=== PATIENT | male | born 1990 | race Caucasian/White ===

== ENCOUNTER 2016-12-01 07:59 | Emergency (ER) | payer OTHER ==
[~2016-12-01] VITALS: Ht 190.5 cm; Wt 120.9 kg
[~2016-12-01 07:59] MED LIST: AZIT250T PO; CYCL10TA2 PO; HYDR-971 PO; ONDA4TAB10 SL; PRED20TA PO; PROAIR HFA8.5 GM INH
[2016-12-01 08:11] VITALS: BP 176/89
[2016-12-01] MEDS ORDERED: ACET325T9 PO (08:20)
[2016-12-01] MEDS ORDERED: NAPR500T PO (08:20)
[2016-12-01] MEDS ORDERED: DIAZ5TAB PO (08:20)
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
== END 2016-12-01 08:33 | disposition home or self-care (01) ==
LOC: ER 07:59
DX: S39.012A Strain of muscle, fascia and tendon of lower back, initial encounter (principal); I10 Essential (primary) hypertension; K21.9 Gastro-esophageal reflux disease without esophagitis; F17.210 Nicotine dependence, cigarettes, uncomplicated; V43.52XA Car driver injured in collision with other type car in traffic accident, initial encounter; Y93.I9 Activity, other involving external motion; Y92.410 Unspecified street and highway as the place of occurrence of the external cause; Y99.8 Other external cause status
CPT/HCPCS: 99283

== ENCOUNTER → 2018-06-19 | Outpatient (CLI) | payer OTHER ==
[~2018-06-19] MED LIST changes: +ACET325T9 PO; +ALBU2.5V8 INH; +CONTRAST GIVEN. MC PRN; +DIAZ5TAB PO; +HYDR-3164 PO; -HYDR-971 PO; +IOHEXOL 300 MG/ML 100ML VIAL. IV ONE; +NAPR-683 PO; -PROAIR HFA8.5 GM INH
--- NOTE | 2018-06-19 16:26 | RAD ---
CT of the chest with and without contrast, 06/19/2018: HISTORY: Abnormal supraclavicular lymph node Multidetector CT imaging was performed prior to and following an IV bolus injection of iodinated contrast material as requested. The given history is that of an abnormal lymph node identified on an outside ultrasound. That study is not currently available for correlation purposes. There is a small left supraclavicular lymph node identified on image 16 of axial series #7. It measures 10-11 mm in short axis dimension and is therefore at the upper limits of normal in size. No other supraclavicular or lower neck adenopathy is evident. No axillary adenopathy is evident. There is a 9 mm lymph node in the upper mediastinum lying along the left lateral margin of the left common carotid artery. A similar small lymph node is seen along the lateral aspect of the aortic arch. No definite mediastinal or hilar adenopathy is seen. Hazy tissue in the anterior mediastinum is compatible with minimal residual thymic tissue in this young patient. The thoracic aorta is unremarkable. No pulmonary mass or consolidation is seen. There is no evidence of pleural fluid. There is a minimal upper thoracic scoliosis IMPRESSION: 1. Small left supraclavicular lymph node of borderline size as described above. 2. No significant intrathoracic abnormality is detected. PQRS Compliance Statement: One or more of the following individualized dose reduction techniques were utilized for this examination: 1. Automated exposure control 2. Adjustment of the mA and/or kV according to patient size 3. Use of iterative reconstruction technique Electronically signed by: Vinicius Dinero MD (06/19/2018 4:23 PM) [facility]
== END | disposition home or self-care (01) ==
LOC: CT 10:24
PROVIDERS: ATTEND Physician Assistant Medical
DX: R22.2 Localized swelling, mass and lump, trunk (principal); M41.84 Other forms of scoliosis, thoracic region
CPT/HCPCS: 71270; Q9967